=== PATIENT | male | born 1945 | race Caucasian/White ===

== ENCOUNTER 2016-12-23 14:12 | Inpatient (IN) | payer MEDICARE ==
[~2016-12-23] VITALS: Ht 190.5 cm; Wt 88.0 kg
--- NOTE | 2017-01-03 23:26 | MH ---
cc: MARGARITA MUNOZ DATE OF ADMISSION: 01/04/2017 ADMITTING DIAGNOSIS: Osteoarthritis right hip. HISTORY OF PRESENT ILLNESS: This patient is a 71 year-old patient with significant right hip pain. The patient had previous right hip surgery for a fracture with cannulated screws. The patient is having progressive collapse across this region with severe pain, and has a pattern consistent with avascular necrosis. The patient presents for surgical treatment. PAST MEDICAL HISTORY: See attached notes. SOCIAL HISTORY, FAMILY HISTORY, AND REVIEW OF SYSTEMS: See attached notes. PHYSICAL EXAMINATION: GENERAL: The patient is a 71 year-old patient in moderate distress with the right hip. HEENT: Normocephalic, atraumatic. Pupils equal, round, reactive to light and accommodation. Extraocular motions intact. NECK: Supple. CHEST: Clear. HEART: Regular rate and rhythm. ABDOMEN: Soft, nontender, normoactive bowel sounds. MUSCULOSKELETAL EXAMINATION: Right hip, pain with range of motion, especially with internal rotation, mild flexion contracture. Neurologic and vascular examination is within normal limits. IMPRESSION: Osteoarthritis right hip. Status post internal fixation right hip. PLAN: Removal of multiple screws of the right hip and conversion to total hip replacement arthroplasty, direct anterior exposure. CONSENT: There are risks with surgery including infection, bleeding, loss of motion, continued pain, need for further surgery, neurologic or vascular injury, etc. The patient understands these issues and wishes to press on with surgery as outlined above. Margarita Munoz MD [facility] /10:59 PM /11:17 PM
[2017-01-04 06:15] VITALS: BP 179/80; PULSE 56; RESP 20; TEMP 98.6; O2SAT 96
[2017-01-04] MEDS ORDERED: EXPAREL PERI-ARTICULAR INJECTION (TOTAL VOL. 60 ML) P-ARTICULR SCH ×2 (06:15)
[2017-01-04] MEDS ORDERED: CHLORHEXIDINE GLUCONATE 2 % 1 PACK (2 CLOTHS) TOPICAL PRN (06:15)
[2017-01-04] MEDS ORDERED: TRANEXAMIC ACID INJ 870 MG in SODIUM CHLORIDE 0.9% INJ 100 ML IV SCH ×2 (06:15→10:15)
[2017-01-04] MEDS ORDERED: INSULIN HUMAN REGULAR 1,000 UNITS/10 ML VIAL SQ PRN (06:15)
[2017-01-04] MEDS ORDERED: VANCOMYCIN 1000 MG/NS 250 ML (for <70 kg) IV SCH ×2 (06:15)
[2017-01-04] MEDS ORDERED: SODIUM CHLORID 0.9% 500 ML IV PRN (06:15)
[2017-01-04] MEDS ORDERED: METOPROLOL TARTRATE 25 MG TAB PO PRN (06:15)
[2017-01-04] MEDS ORDERED: POVIDONE IODINE 7.5% SCRUB 118 ML BOTTLE TOPICAL SCH (06:15)
[2017-01-04] MEDS ORDERED: ceFAZolin 2 GM PREMIX 50 ML IV SCH (06:15)
[2017-01-04] MEDS ORDERED: LACTATED RINGER'S 1000 ML IV PRN (06:15)
[2017-01-04] MEDS ORDERED: POVIDONE IODINE 5% (ANTISEPSIS KIT) 4 APPLICATIONS EACH NARE PRN (06:15)
[2017-01-04] MEDS ORDERED: GENTAMICIN SULFATE 80 MG/2 ML VIAL ONE ×2 (06:41)
[2017-01-04] MEDS ORDERED: MIDAZOLAM HCL 2 MG/2 ML VIAL ONE (07:09)
[2017-01-04] MEDS ORDERED: FAMOTIDINE 20 MG/2 ML VIAL ONE (07:10)
[2017-01-04] MEDS ORDERED: ACETAMINOPHEN 1000 MG/100 ML VIAL IV ONE (07:12)
[2017-01-04] MEDS ORDERED: MORPHINE SULFATE 30 MG/30 ML PCA IV SCH (09:30)
[2017-01-04] MEDS ORDERED: MISCELLANEOUS PHARMACY INFORMATION XX ONE (09:30)
[2017-01-04] MEDS ORDERED: ACETAMINOPHEN/HYDROcodone 325 MG/10 MG TAB PO PRN (09:30)
[2017-01-04] MEDS ORDERED: ONDANSETRON HCL 4 MG/2 ML VIAL IVP PRN (09:30)
[2017-01-04] MEDS ORDERED: MORPHINE SULFATE 8 MG/ML INJ IM PRN (09:30)
[2017-01-04] MEDS ORDERED: SODIUM CHLORIDE 0.9% FLUSH 10 ML FLUSH IV FLUSH PRN (09:30)
[2017-01-04] MEDS ORDERED: NALOXONE HCL 0.4 MG/ML AMP IV PRN (09:30)
[2017-01-04] MEDS ORDERED: MISCELLANEOUS NURSING INFORMATION XX PRN (09:30)
--- NOTE | 2017-01-04 09:39 | PD.OP ---
cc: Mata Lin MD Operative Report Date of Surgery: January 04, 2017 Preoperative Diagnosis: Osteoarthritis right hip. Status post open treatment internal fixation right femoral neck fracture, remote. Retained multiple screws, right hip Postoperative Diagnosis: Same Procedure: Removal of multiple screws from the right hip, lateral incision. Conversion from previous hip surgery to right total hip replacement arthroplasty , direct anterior exposure Anesthesia: Gen. Surgeon: Mata Lin Flatwork Assembler(s): KANE Kilpatrick Operation and Findings: EBL: 250 cc INDICATION: This patient presents with significant hip pain related to osteoarthritis of the right hip. The patient's had previous hip surgery in the past with internal fixation of the right femoral neck fracture. This led to a short hip, and developed some collapse across the joint consistent with severe arthritis. Despite extensive conservative care this patient continues to be painful and now presents for surgical treatment. NOTE: Amanda Kilpatrick PA-C was present for the entire surgical procedure as my cutting table operator first. In my medical opinion her skill and care was necessary for the proper management of this patient. COMPONENTS: COMPANY: [employer] CUP: Lerna, 58 mm, 100 series, gription surface LINER: Altrx 36, neutral STEM: Corail, standard offset, size 14, hydroxyapatite-coated HEAD: 36 mm, +8.5, 12/14 taper PROCEDURE: This patient was brought to the operating room and anesthetized in the supine position and positioned on the fracture table with both legs held extended. The right hip and leg was scrubbed with alcohol followed by Hibiclens followed by ChloraPrep and draped sterilely. Antibiotics were given within routine time window and a timeout was done. A 1-1/2 inch incision was made laterally in line with the previously placed screws. The iliotibial band was opened in line with the incision. The screw heads were identified. They were removed in a retrograde fashion. The wound was irrigated and the fascia was closed with interrupted 0 Vicryl suture. Subcutaneous tissue was closed with 2-0 Vicryl suture and skin with running intradermal 3-0 Vicryl followed by Steri-Strips and benzoin. A 4 inch incision was made starting 2 cm distal and 2 cm lateral to the anterior superior iliac spine. The fascia caleb was opened longitudinally. The interval between the fascia caleb and the rectus was opened down to the capsule of the hip joint. Retractors were positioned allowing good visualization of the capsule. This was opened longitudinally and flaps were created. Stay sutures were utilized. Exposure was excellent. The neck was cut at the proper location using fluoroscopy as a guide. The head was removed. Deep retractors were positioned allowing good visualization of the acetabulum. Acetabulum was deepened down to the floor starting with a proper size reamer and reaming up to 57 mm. A trial was utilized. Fluoroscopy was used to check position and confirmed satisfactory alignment. The rim was reamed with a 58 mm reamer and the final cup was positioned in approximately 20 of anteversion and 40-45 of abduction. Position was satisfactory. A single hole eliminator was positioned followed by the final liner. The lifting hook was utilized. The leg was dropped to the floor, maximally externally rotated and brought across the midline. Retractors were positioned. A box osteotome was utilized followed by progressive broaching to the proper stem size. Trial reduction showed excellent alignment and fit. With 60 of external rotation the leg was dropped to the floor without evidence of anterior subluxation. The wound was irrigated. The final stem was inserted and was found to be very stable. The final reduction using the final head. Stability was as previously noted. Intraoperative x-rays were taken. The wound was irrigated copiously. Hemostasis was controlled. Local anesthesia was utilized. The capsule was repaired with #2 Tycron sutures. The fascia caleb was repaired with running 0 PDS on a loop. Subcutaneous tissue was approximated with 2-0 Vicryl and skin with running intradermal 3-0 Vicryl followed by Steri-Strips. A sterile dressing was applied. The patient was awakened and taken to the recovery room in satisfactory condition. FINDINGS: There was severe osteoarthritis of the right hip. We intentionally lengthened this by approximately 1 cm because of shortening of the right leg from the pathology of the hip joint. Releases were necessary to accomplish this. The final solution appeared be very satisfactory. Mata Lin MD January 04, 2017 09:39
[2017-01-04] MEDS ORDERED: HYDR-3583 PO (09:41)
[2017-01-04] MEDS ORDERED: XARE10TA PO (09:41)
[2017-01-04] MEDS ORDERED: DO NOT ADM ANY ANTICOAGULANT DRUGS PRN (10:00)
[2017-01-04] MEDS ORDERED: Post-op Orders (for Pharmacy) MISC XX ONE (10:04)
[2017-01-04] MEDS: LACTATED RINGER'S 1000 ML INJ 1,000 ML IV SCH ×2 (10:38→21:24)
[2017-01-04] MEDS ORDERED: ePHEDrine/NS 25 MG/5 ML SYR IV ONE (12:00)
[2017-01-04] MEDS ORDERED: PROPOFOL 200 MG/20 ML AMP IV ONE (12:00)
[2017-01-04] MEDS ORDERED: LACTATED RINGER'S 1000 ML INJ 1,000 ML IV ONE (12:00)
[2017-01-04] MEDS ORDERED: ONDANSETRON HCL 4 MG/2 ML VIAL IV PUSH ONE (12:00)
--- NOTE | 2017-01-04 12:06 | RADRPT ---
EXAM DATE/TIME: 01/04/2017 08:04 [place] COMPARISON: No previous studies available for comparison. INDICATIONS : Right anterior hip replacement with hardware removal. MEDICAL HISTORY : Osteoarthritis. SURGICAL HISTORY : None. ENCOUNTER: Initial ACUITY: 1 day PAIN SCORE: Non-responsive. LOCATION: Right hip. FINDINGS: Patient is status post placement of a right hip prosthesis. There is good position and alignment of t he prosthesis and bony structures. The bony structures are grossly intact. Postsurgical changes are p resent. CONCLUSION: Good position and alignment on this postoperative examination. Romulo Vang MD on January 04, 2017 at 12:03 Board Certified Radiologist. This report was verified electronically.
[2017-01-04 12:18] VITALS: BP 140/62; PULSE 50; RESP 17; TEMP 96.4; O2SAT 99
[2017-01-04] MEDS: PCA - TOTAL MG MORPHINE DELIVERED PER SHIFT SCH ×2 (14:19→20:43)
[2017-01-04 15:23] VITALS: BP 143/66; PULSE 56; RESP 17; TEMP 95.6; O2SAT 100
[2017-01-04 15:47] VITALS: O2SAT 99
[2017-01-04] MEDS: ACETAMINOPHEN/HYDROcodone 325 MG/10 MG TAB PO PRN ×2 (16:20→21:21)
[2017-01-04] MEDS ORDERED: COMMODE 3-IN-11 MIS (17:25)
[2017-01-04] MEDS ORDERED: WALKER WHEELS/F1 MIS (17:25)
--- NOTE | 2017-01-04 17:25 | HHI.DCPOC ---
Discharge Care Plan Diagnosis: (1) Right hip pain (2) Osteoarthritis of right hip Your Health Problems Are: Incision/Drains Inflammation Goals to Promote Your Health * To prevent worsening of your condition and complications * To maintain your health at the optimal level Directions to Meet Your Goals Take your medications as prescribed Follow your dietary instruction Follow activity as directed Keep your appointments as scheduled Take your immunizations and boosters as scheduled If your symptoms worsen call your PCP, if no PCP go to Urgent Care Center or Emergency Room Smoking is Dangerous to Your Health. Avoid second hand smoke Call the 24-hour hour crisis hotline for domestic abuse at Yadira Garcia January 04, 2017 17:25
--- NOTE | 2017-01-04 17:26 | HHI.DS ---
Discharge Summary Admission Date January 04, 2017 at 05:29 Discharge Date: Jan 07, 2017 Admitting Diagnosis see below Diagnosis: (1) Right hip pain Diagnosis: Principal (2) Osteoarthritis of right hip Diagnosis: Principal (3) Avascular necrosis of bone of right hip Diagnosis: Principal Procedures Right total hip arthroplasty, Direct anterior approach Brief History This is a 71 year old male patient with a history of right femoral neck fracture treated with percutaneous screws in 2013. He did well for a period of time but began having increased pain 2 years later. Imaging studies showed advancing arthritis and features of AVN. Conservative measures were pursued including use of medications and intra-articular steroid injections. He continued to decline so surgical treatment was recommended. He elected to move forward and presents for the above. Hospital Course Surgical treatment was performed on the day of admission. He recovered well in PACU and was transferred to the orthopaedic floor. Pain was controlled with IV and oral medications. DVT prophylaxis was inititated pod#1. He was compliant with physical therapy and all restrictions. After 3 days he was found to be stable and discharged to residential. He was instructed to continue his xarelto for 30 days, continue therapy, and to pursue a high fiber diet for 5 days. Pt Condition on Discharge: Stable Discharge Disposition: Discharge to SNF Discharge Instructions Diet Instructions: As Tolerated, No Restrictions, High Fiber Diet Activities You Can Perform: Weight Bearing as Jamar Activities to Avoid: Strenuous Activity Additional Activity Instruc.: Anterior JUAREZ protocol New Medications: Commode 3-in-1 (Commode 3-in-1) 1 Mis Mis 1 EA .ROUTE DIRECTED #1 Ref 0 EA Walker with Front Wheels (Walker with Front Wheels) 1 Mis Mis 1 EA .ROUTE DIRECTED #1 Ref 0 EA Hydrocodone-Acetaminophen (Hydrocodone-Acetaminophen) 10-325 mg Tab 1 TAB PO Q4H PRN PAIN LESS THAN 5 ON SCALE #50 TAB Rivaroxaban (Xarelto) 10 Mg Tab 10 MG PO Q24H Prevent Blood Clot #25 TAB Yadira Garcia January 04, 2017 17:26
[2017-01-04 20:35] VITALS: BP 156/74; PULSE 64; RESP 17; TEMP 96.2; O2SAT 100
[2017-01-04] MEDS: MAGNESIUM HYDROXIDE SUSP 30 ML CUP PO SCH (20:40)
[2017-01-04] MEDS: SENNOSIDES 8.6 MG TAB PO SCH (20:40)
[2017-01-04] MEDS: SODIUM CHLORIDE 0.9% FLUSH 10 ML FLUSH IV FLUSH SCH (20:40)
[2017-01-05 00:40] VITALS: BP 149/69; PULSE 75; RESP 17; TEMP 98.7; O2SAT 99
[2017-01-05 04:30] VITALS: BP 133/68; PULSE 76; RESP 16; TEMP 99.3; O2SAT 95
[2017-01-05] MEDS: PCA - TOTAL MG MORPHINE DELIVERED PER SHIFT SCH (06:00)
[2017-01-05 07:11] LABS: HEMATOCRIT 34.4 % (39.0-51.0); REVIEW FLAG FINAL
[2017-01-05] MEDS: ACETAMINOPHEN/HYDROcodone 325 MG/10 MG TAB PO PRN ×2 (07:42→15:46)
[2017-01-05] MEDS: SODIUM CHLORIDE 0.9% FLUSH 10 ML FLUSH IV FLUSH SCH ×2 (07:43→21:00)
[2017-01-05 07:52] VITALS: BP 162/72; PULSE 80; RESP 18; TEMP 98; O2SAT 99
[2017-01-05] MEDS: MAGNESIUM HYDROXIDE SUSP 30 ML CUP PO SCH ×2 (09:12→22:12)
[2017-01-05] MEDS: RIVAROXABAN 10 MG TAB PO SCH (09:13)
--- NOTE | 2017-01-05 11:58 | PD.ORT.PN ---
Subjective Subjective Remarks He states he struggled getting much sleep last night. He notes moderate anterior thigh pain. He denies any significant pain radiating below the knee. He denies any significant shortness of breath or chest pain. He has questions about surgery and discharge. He prefers going to a rehabilitation center. Objective Vitals Vital Signs Date Time Temp Pulse Resp B/P Pulse Ox O2 Delivery O2 Flow Rate FiO2 01/05/17 08:42 18 01/05/17 07:52 98.0 80 18 162/72 99 01/05/17 06:00 16 01/05/17 04:30 99.3 76 16 133/68 95 01/05/17 00:40 98.7 75 17 149/69 99 01/04/17 20:43 18 01/04/17 20:35 96.2 64 17 156/74 100 01/04/17 15:47 99 21 01/04/17 15:23 95.6 56 17 143/66 100 01/04/17 14:19 20 01/04/17 12:18 96.4 50 17 140/62 99 I/O 01/04/17 01/04/17 01/04/17 01/05/17 01/05/17 01/05/17 07:00 15:00 23:00 07:00 15:00 23:00 Intake Total 2899 ml 1263 ml 480 ml Output Total 575 ml 2250 ml 1650 ml Balance 2324 ml -987 ml -1170 ml Intake Oral 250 ml 720 ml 480 ml IV Total 649 ml 543 ml Other 2000 ml Output Urine Total 225 ml 2250 ml 1650 ml Estimated Blood Loss 250 ml Other 100 ml # Bowel Movements 0 0 Result Diagram: 01/05/17 0617 Procedures Right total hip arthroplasty, Direct anterior approach Objective Remarks Sitting up in bed, NAD VSS RLE Dressing c/d/i, mild swelling, no erythema, no new drainage, thigh supple, calf supple, neg homans +motor at, +sens, +nvi Assessment & Plan Ortho Post Op Day #: 1 Problem List: (1) Right hip pain (2) Osteoarthritis of right hip Assessment and Plan pod#1 s/p Conversion to R JUAREZ, anterior D/C FIRE MANAGER - change to po pain meds. Hold dressing changes unless saturated. PT - WBAT RLE. Anterior juarez protocol. Xarelto 10mg qd. D/C planning, prefers rehab postop. DME written if needed. Yadira Garcia January 05, 2017 11:58
[2017-01-05] MEDS: LACTATED RINGER'S 1000 ML INJ 1,000 ML IV SCH ×2 (12:00→22:15)
[2017-01-05 12:20] VITALS: BP 136/65; PULSE 73; RESP 18; TEMP 98.3; O2SAT 93
[2017-01-05 16:00] VITALS: BP 158/73; PULSE 78; RESP 18; TEMP 99.6; O2SAT 98
[2017-01-05 20:50] VITALS: BP_SYST 184; BP_SYST 186; BP_DIAS 75; BP_DIAS 80; PULSE 86; RESP 17; TEMP 99; O2SAT 100
[2017-01-05] MEDS: SENNOSIDES 8.6 MG TAB PO SCH (22:13)
[2017-01-05] MEDS ORDERED: ACETAMINOPHEN 325 MG TAB PO PRN (23:45)
[2017-01-06] MEDS: ACETAMINOPHEN/HYDROcodone 325 MG/10 MG TAB PO PRN ×4 (00:10→18:58)
[2017-01-06 00:20] VITALS: BP 170/65; PULSE 83; RESP 17; TEMP 100.4; O2SAT 99
[2017-01-06 04:55] VITALS: BP 173/74; PULSE 75; RESP 17; TEMP 99; O2SAT 100
[2017-01-06] MEDS ORDERED: ENALAPRILAT 2.5 MG/2 ML VIAL IV PUSH PRN (07:45)
[2017-01-06 07:48] VITALS: BP 173/82; PULSE 83; RESP 17; TEMP 97.7; O2SAT 100
[2017-01-06] MEDS ORDERED: LACTULOSE SYRUP 20 GM/30 ML CUP PO ONE (08:00)
[2017-01-06] MEDS ORDERED: SODIUM CHLORIDE 0.65% NASAL SPRAY 45 ML BTL EACH NARE PRN (08:00)
[2017-01-06] MEDS: MAGNESIUM HYDROXIDE SUSP 30 ML CUP PO SCH ×2 (08:21→19:52)
[2017-01-06] MEDS: RIVAROXABAN 10 MG TAB PO SCH (08:22)
[2017-01-06] MEDS: amLODIPine BESYLATE 5 MG TAB PO SCH (08:22)
[2017-01-06] MEDS: DOCUSATE SODIUM 50 MG/SENNA 8.6 MG TAB PO SCH ×2 (08:22→19:52)
[2017-01-06] MEDS: LACTATED RINGER'S 1000 ML INJ 1,000 ML IV SCH (08:23)
[2017-01-06] MEDS: SODIUM CHLORIDE 0.9% FLUSH 10 ML FLUSH IV FLUSH SCH ×2 (08:23→19:52)
--- NOTE | 2017-01-06 11:11 | PD.CONS ---
HPI Service [facility] Hospitalists Consult Requested By Dr. Levi Reason for Consult Medical management Primary Care Physician Evelyn Salmeron MD Diagnoses: (1) Osteoarthritis of right hip History of Present Illness Mr. Messer is a 71-year-old male patient with a known history of osteoarthritis of the right hip who is status post total right hip arthroplasty by Dr. Lin on 01/04/17. Hospitalist team has been consulted for medical management. Patient seen and examined today. Denies any significant medical history. Denies taking any prescribed medications. Dr. Salmeron is his PCP in the outpatient setting. Patient states he is from [facility] and relatively healthy. Pain well controlled at this time. Right hip surgical dressing clean, dry, intact. Denies any recent headache, dizziness, fever, chills, cough, shortness of breath, chest pain, palpitations, abdominal pain, n/v, dysuria. Review of Systems Gastrointestinal: COMPLAINS OF: Constipation Except as stated in HPI: all other systems reviewed are Neg Past Family Social History Allergies: Coded Allergies: No Known Allergies (Verified , 01/04/17) Past Medical History Right femoral neck fracture in 2003 Osteoarthritis of right hip Past Surgical History Left inguinal hernia repair Right femoral neck surgery [address] Celis. Reported Medications No home medications. Active Ordered Medications Current Medications Medications (Trade) Dose Ordered Sig/Nirmal Route Start Time Stop Time Status Last Admin Lactated Ringer's 1,000 ml @ 30 mls/hr Q24H PRN IV 01/04/17 06:15 01/07/17 06:14 01/04/17 06:08 (NS 500 ml Inj) 500 ml @ 30 mls/hr [id number] PRN IV 01/04/17 06:15 01/07/17 06:14 Povidone Iodine 1 applic 1 applic ONCE TOPICAL 01/04/17 06:15 01/07/17 06:14 01/04/17 06:15 (Lr 1000 ml Inj) 1,000 ml @ 80 mls/hr [id number] IV 01/04/17 11:00 01/04/17 21:24 (NS Flush) 2 ml UNSCH PRN IV FLUSH 01/04/17 09:30 (NS Flush) 2 ml BID IV FLUSH 01/04/17 21:00 01/06/17 08:23 (Xarelto) 10 mg Q24H PO 01/05/17 09:00 01/06/17 08:22 Miscellaneous Information UNSCH PRN XX 01/04/17 09:30 (Morphine Inj) 5 mg Q3H PRN IM 01/04/17 09:30 (Mayo 10-325 Mg) 1 tab Q4H PRN PO 01/04/17 09:30 01/06/17 08:23 (Mayo 10-325 Mg) 2 tab Q6H PRN PO 01/04/17 09:30 (Zofran Inj) 4 mg Q6H PRN IVP 01/04/17 09:30 (Milk Of Magnesia Liq) 30 ml BID PO 01/04/17 21:00 01/06/17 08:21 (Senokot) 17.2 mg HS PO 01/04/17 21:00 01/05/17 22:13 (Tylenol) 650 mg Q6H PRN PO 01/05/17 23:45 (Vasotec Inj) 2.5 mg Q6H PRN IV PUSH 01/06/17 07:45 (Norvasc) 5 mg DAILY PO 01/06/17 09:00 01/06/17 08:22 (Lactulose Liq) 30 ml DAILY PO 01/07/17 09:00 (Carla-Colace) 2 tab BID PO 01/06/17 09:00 01/06/17 08:22 (Cavalier Perfecto Ladson) 2 spray Q4H PRN EACH NARE 01/06/17 08:00 Family History Patient denies any significant family medical history. Social History Patient is from [facility]. Denies any previous or current tobacco use. Admits to occasional alcohol consumption a few times per week. Denies any illicit drug use. Physical Exam Vital Signs Vital Signs Date Time Temp Pulse Resp B/P Pulse Ox O2 Delivery O2 Flow Rate FiO2 01/06/17 07:48 97.7 83 17 173/82 100 01/06/17 04:55 99.0 75 17 173/74 100 01/06/17 00:20 100.4 83 17 170/65 99 01/05/17 20:50 99.0 86 17 184/75 100 186/80 01/05/17 16:46 18 01/05/17 16:00 99.6 78 18 158/73 98 01/05/17 12:20 98.3 73 18 136/65 93 Physical Exam GENERAL: Well-nourished, well-developed patient, in no apparent distress. Lying in bed comfortably. SKIN: No rashes, ecchymoses or lesions. Warm and dry. Right hip dressing, c,d,i. HEENT: Atraumatic. Normocephalic. Pupils equal round and reactive. Extraocular motions intact. No scleral icterus. No injection or drainage. Nose without bleeding, purulent drainage or septal hematoma. Airway patent. NECK: Trachea midline. No JVD or lymphadenopathy. Supple, nontender, no meningeal signs. CARDIOVASCULAR: Regular rate and rhythm without murmurs, gallops, or rubs. RESPIRATORY: Clear to auscultation. Breath sounds equal bilaterally. No wheezes , rales, or rhonchi. GASTROINTESTINAL: Abdomen soft, non-tender, nondistended. MUSCULOSKELETAL: Extremities without clubbing, cyanosis, or edema. No joint tenderness, effusion, or edema noted. NEUROLOGICAL: Awake and alert. Cranial nerves II through XII intact. Motor and sensory grossly within normal limits. Five out of 5 muscle strength in all muscle groups. Normal speech. Result Diagram: 01/05/17 0617 Imaging Last Impressions Hip X-Ray 01/04/17 0000 Signed Impressions: Service Date/Time: Wednesday, January 04, 2017 08:04 - CONCLUSION: Good position and alignment on this postoperative examination. Romulo Vang MD Assessment and Plan Assessment and Plan Mr. Messer is a 71-year-old male patient with a known history of osteoarthritis of the right hip who is status post total right hip arthroplasty by Dr. Lin on 01/04/17. Hospitalist team has been consulted for medical management. Status post total right hip arthroplasty by Dr. Lin. - Surgery date 01/04/17. Orthopedics following. - Control pain. Mayo 10/325 mg 1 tab PO Q4hr PRN per pain 1-5. Mayo 10/ 325 mg 2 tabs PO Q4hr PRN per pain 6-10. Morphin 5 mg IM Q3h PRN pain > 7. - Dressing changes per surgery recommendations. Hypertension - Patient denies any history of high blood pressure. Could be pain related, but patient stated pain well controlled. - Start patient on Amlodipine 5 mg PO daily. Vasotec 2.5 mg IV Q6h PRN systolic >160. - Monitor closely. Constipation - No reported BM since surgery. - Add Lactulose x 1 now and scheduled 30 ml PO daily. - Continue Senna 17.2 mg PO HS. Continue milk of magnesium 30 ml PO BID. - Add carla-colace 2 tab PO BID. - Please document next BM. DVT prophylaxis: SCDs. Xarelto per surgery recommendations. Thank you for this consultation. Will follow with you. Written by Yadira Shetty, acting as scribe for Dr. Sanchez on 01/06/17 at 11:00. This note was transcribed by scribe Yadira DIANE. I, Dr. Cecilia Sanchez personally performed the history, physical exam, and medical decision making; and confirmed the accuracy of the information in the transcribed note. Authenticated by Dr. Cecilia Sanchez on 01/06/17 at 11:00. Discussed Condition With Patient Yadira Shetty Jan 06, 2017 11:11 Cecilia Sanchez MD Jan 06, 2017 13:48
[2017-01-06 11:43] VITALS: BP 94/52; PULSE 78; RESP 17; TEMP 99.4; O2SAT 96
[2017-01-06 16:00] VITALS: BP 121/68; PULSE 72; RESP 16; TEMP 96.8; O2SAT 100
[2017-01-06] MEDS ORDERED: SOD PHOSPHATE/SOD BIPHOSPHATE (ADULT) ENEMA 133ML RECTAL PRN (17:00)
[2017-01-06 19:00] VITALS: BP 124/80; PULSE 71; RESP 19; TEMP 98.8; O2SAT 97
[2017-01-06] MEDS: SENNOSIDES 8.6 MG TAB PO SCH (19:53)
[2017-01-07 00:15] VITALS: BP 151/63; PULSE 70; RESP 17; TEMP 98.3; O2SAT 98
[2017-01-07] MEDS: LACTATED RINGER'S 1000 ML INJ 1,000 ML IV SCH (01:30)
--- NOTE | 2017-01-07 07:46 | PD.ORT.PN ---
Subjective Subjective Remarks He was able to get a good night's sleep last night. Improving. Moderate right hip pain but tolerable. He denies any significant pain radiating below the knee. He denies any significant shortness of breath or chest pain. He is ready for d/c to SNF today. Objective Vitals Vital Signs Date Time Temp Pulse Resp B/P Pulse Ox O2 Delivery O2 Flow Rate FiO2 01/07/17 00:15 98.3 70 17 151/63 98 01/06/17 19:00 98.8 71 19 124/80 97 01/06/17 16:00 96.8 72 16 121/68 100 01/06/17 11:43 99.4 78 17 94/52 96 01/06/17 07:48 97.7 83 17 173/82 100 I/O 01/06/17 01/06/17 01/06/17 01/07/17 01/07/17 01/07/17 07:00 15:00 23:00 07:00 15:00 23:00 Intake Total 480 ml 960 ml 240 ml 240 ml Output Total 950 ml 600 ml 600 ml Balance -470 ml 960 ml -360 ml -360 ml Intake Oral 480 ml 960 ml 240 ml 240 ml Output Urine Total 950 ml 600 ml 600 ml # Voids 4 # Bowel Movements 0 2 0 0 Result Diagram: 01/05/17 0617 Procedures Right total hip arthroplasty, Direct anterior approach Objective Remarks Sitting up in bed, NAD VSS RLE Dressing c/d/i, mild swelling, no erythema, no new drainage, thigh supple, calf supple, neg homans +motor at, +sens, +nvi Assessment & Plan Ortho Post Op Day #: 3 Problem List: (1) Right hip pain (2) Osteoarthritis of right hip Assessment and Plan pod#3 s/p Conversion to R JUAREZ, anterior Ortho stable. Ok to d/c to SNF later today after PT. PO pain meds as needed. Hold dressing changes unless saturated. PT - WBAT RLE. Anterior juarez protocol. Xarelto 10mg qd. F/U in 2 weeks as scheduled. DME written if needed. Yadira Garcia Jan 07, 2017 07:46
[2017-01-07 08:00] VITALS: BP 115/53; PULSE 70; RESP 16; TEMP 98; O2SAT 98
[2017-01-07] MEDS: amLODIPine BESYLATE 5 MG TAB PO SCH (08:23)
[2017-01-07] MEDS: RIVAROXABAN 10 MG TAB PO SCH (08:24)
[2017-01-07] MEDS: SODIUM CHLORIDE 0.9% FLUSH 10 ML FLUSH IV FLUSH SCH (08:24)
[2017-01-07] MEDS: ACETAMINOPHEN/HYDROcodone 325 MG/10 MG TAB PO PRN (08:24)
[2017-01-07] MEDS: MAGNESIUM HYDROXIDE SUSP 30 ML CUP PO SCH (08:26)
[2017-01-07] MEDS: DOCUSATE SODIUM 50 MG/SENNA 8.6 MG TAB PO SCH (08:26)
[2017-01-07] MEDS ORDERED: LACTULOSE SYRUP 20 GM/30 ML CUP PO SCH (09:00)
--- NOTE | 2017-01-07 09:48 | HHI.PR ---
Subjective Remarks In nad. Pain is controlled by meds. no n/v/d/c. No fever or chills. Objective Vitals Vital Signs Date Time Temp Pulse Resp B/P Pulse Ox O2 Delivery O2 Flow Rate FiO2 01/07/17 00:15 98.3 70 17 151/63 98 01/06/17 19:00 98.8 71 19 124/80 97 01/06/17 16:00 96.8 72 16 121/68 100 01/06/17 11:43 99.4 78 17 94/52 96 I/O 01/06/17 01/06/17 01/06/17 01/07/17 01/07/17 01/07/17 07:00 15:00 23:00 07:00 15:00 23:00 Intake Total 480 ml 960 ml 240 ml 240 ml Output Total 950 ml 600 ml 600 ml Balance -470 ml 960 ml -360 ml -360 ml Intake Oral 480 ml 960 ml 240 ml 240 ml Output Urine Total 950 ml 600 ml 600 ml # Voids 4 # Bowel Movements 0 2 0 0 Result Diagram: 01/05/17 0617 Imaging Last Impressions Hip X-Ray 01/04/17 0000 Signed Impressions: Service Date/Time: Wednesday, January 04, 2017 08:04 - CONCLUSION: Good position and alignment on this postoperative examination. Romulo Vang MD Objective Remarks GENERAL: Well-nourished, well-developed patient, in no apparent distress. Lying in bed comfortably. SKIN: No rashes, ecchymoses or lesions. Warm and dry. Right hip dressing, c,d,i. HEENT: Atraumatic. Normocephalic. Pupils equal round and reactive. Extraocular motions intact. No scleral icterus. No injection or drainage. Nose without bleeding, purulent drainage or septal hematoma. Airway patent. NECK: Trachea midline. No JVD or lymphadenopathy. Supple, nontender, no meningeal signs. CARDIOVASCULAR: Regular rate and rhythm without murmurs, gallops, or rubs. RESPIRATORY: Clear to auscultation. Breath sounds equal bilaterally. No wheezes , rales, or rhonchi. GASTROINTESTINAL: Abdomen soft, non-tender, nondistended. MUSCULOSKELETAL: Extremities without clubbing, cyanosis, or edema. No joint tenderness, effusion, or edema noted. NEUROLOGICAL: Awake and alert. Cranial nerves II through XII intact. Motor and sensory grossly within normal limits. Five out of 5 muscle strength in all muscle groups. Normal speech. A/P Problem List: (1) Osteoarthritis of right hip ICD Code: M16.11 Status: Acute Assessment and Plan Mr. Messer is a 71-year-old male patient with a known history of osteoarthritis of the right hip who is status post total right hip arthroplasty by Dr. Lin on 01/04/17. Hospitalist team has been consulted for medical management. Status post total right hip arthroplasty by Dr. Lin. - Surgery date 01/04/17. Orthopedics following. - Control pain. Princeton 10/325 mg 1 tab PO Q4hr PRN per pain 1-5. Princeton 10/ 325 mg 2 tabs PO Q4hr PRN per pain 6-10. Morphin 5 mg IM Q3h PRN pain > 7. - Dressing changes per surgery recommendations. Hypertension - Patient denies any history of high blood pressure. Could be pain related, but patient stated pain well controlled. - Start patient on Amlodipine 5 mg PO daily. Vasotec 2.5 mg IV Q6h PRN systolic >160. - Monitor closely. Constipation - No reported BM since surgery. - Add Lactulose x 1 now and scheduled 30 ml PO daily. - Continue Senna 17.2 mg PO HS. Continue milk of magnesium 30 ml PO BID. - Add adis-colace 2 tab PO BID. - Please document next BM. DVT prophylaxis: SCDs. Xarelto per surgery recommendations. Stable medically. Cleared for DC, to follow up as OP with PCP and consultants Thank you for this consultation. Will follow along. Discussed Condition With Patient, nurse Cecilia Sanchez MD Jan 07, 2017 09:48
== END 2017-01-07 11:54 | DRG 470 ==
LOC: HSDI 01-04 05:29 → N06B 01-04 12:06
PROVIDERS: ADMIT Orthopaedic Surgery Orthopaedic Surgery of the Spine; ATTEND Orthopaedic Surgery Orthopaedic Surgery of the Spine
PROC: 0SR902A Replacement of Right Hip Joint with Metal on Polyethylene Synthetic Substitute, Uncemented, Open Approach (ICD-10-PCS; principal; 2017-01-04 07:12)
PROC: 0QP604Z Removal of Internal Fixation Device from Right Upper Femur, Open Approach (ICD-10-PCS; 2017-01-04 07:12)
DX: M16.11 Unilateral primary osteoarthritis, right hip (principal); M87.9 Osteonecrosis, unspecified; I10 Essential (primary) hypertension; K59.00 Constipation, unspecified; Z87.891 Personal history of nicotine dependence
CPT/HCPCS: 73502; 76000; 85014; 85018; 86850; 86900; 86901; 86920; 94150; C1776; C9290; J0131; J0690; J1580; J2250; J2270; J2405; J3010; J3370; J7050; J7120

== ENCOUNTER → 2016-12-24 | Outpatient (CLI) | payer MEDICARE ==
[~2016-12-24] MED LIST: COMMODE 3-IN-11 MIS; HYDR-3583 PO; WALKER WHEELS/F1 MIS; XARE10TA PO
[2016-12-24 08:49] LABS: AUTOMATED NEUTROPHIL # 2.6 TH/MM3 (1.8-7.7); BASOPHIL # 0.1 TH/MM3 (0-0.2); EOSINOPHIL # 0.2 TH/MM3 (0-0.4); EOSINOPHIL % 5.2 % (0.0-4.0); HEMO FLAGS DIFF FINAL; LYMPH % 31.6 % (9.0-44.0); LYMPHOCYTE # 1.5 TH/MM3 (1.0-4.8); MEAN CELL VOLUME 92.9 FL (80.0-100.0); MEAN CORPUSCULAR HEMOGLOBIN 31.2 PG (27.0-34.0); MEAN CORPUSCULAR HGB CONC 33.6 % (32.0-36.0); MONO % 6.3 % (0.0-8.0); NEUT % 54.9 % (16.0-70.0); PLATELET COUNT 248 TH/MM3 (150-450); RED BLOOD COUNT 4.52 MIL/MM3 (4.50-5.90); RED CELL DISTRIBUTION WIDTH 13.5 % (11.6-17.2); WHITE BLOOD COUNT 4.7 TH/MM3 (4.0-11.0)
[2016-12-24 09:00] LABS: APTT (PATIENT) 25.5 SEC (24.3-30.1); PROTHROMBIN TIME - PATIENT 10.8 SEC (9.8-11.6)
[2016-12-24 09:18] LABS: BICARBONATE 28.1 MEQ/L (21.0-32.0); POTASSIUM 4.5 MEQ/L (3.5-5.1)
[2016-12-24 10:25] LABS: BLOOD, URINE TRACE (NEG); COMMENT (UR) CULT NOT INDICATED; CULTURE IF INDICATED CULT NOT INDICATED; GLUCOSE,URINE NEG (NEG); KETONE, URINE 10 mg/dL (NEG); MUCUS URINE FEW /lpf (OCC); NITRITE,URINE NEG (NEG); URINE COLOR YELLOW (YELLW/STRAW)
--- NOTE | 2016-12-25 16:26 | EKG ---
Date Performed: 12/24/2016 Time Performed: 08:27:33 PTAGE: 71 years EKG: SINUS BRADYCARDIA Compared to previous tracing, the patient is now bradycardic BORDERLINE E CG PREVIOUS TRACING : 02/09/2004 07.54 DOCTOR: Mariely Flood Interpretating Date/Time 12/25/2016 16:24:22
== END ==
LOC: CPRE 08:03
PROVIDERS: ATTEND Orthopaedic Surgery Orthopaedic Surgery of the Spine
DX: Z01.810 Encounter for preprocedural cardiovascular examination (principal); Z01.812 Encounter for preprocedural laboratory examination; Z01.818 Encounter for other preprocedural examination; Z79.01 Long term (current) use of anticoagulants; M16.11 Unilateral primary osteoarthritis, right hip; R94.31 Abnormal electrocardiogram [ECG] [EKG]
CPT/HCPCS: 36415; 80048; 81001; 85025; 85610; 85730; 93005